=== PATIENT | female | born 1975 | race Hispanic/Latino ===

== ENCOUNTER 2024-08-23 19:08 | Emergency (ER) | payer OTHER ==
[~2024-08-23] VITALS: Ht 162.6 cm; Wt 106.1 kg
[2024-08-23 19:27] VITALS: PULSE 108; RESP 20; TEMP 98.4
[2024-08-23] MEDS ORDERED: PREDNISONE 20 MG TAB ONE (20:05)
[2024-08-23] MEDS: DIPHENHYDRAMINE HCL 25 MG CAP PO STA (20:08)
[2024-08-23] MEDS: PREDNISONE 10 MG TAB PO STA (20:10)
[2024-08-23] MEDS ORDERED: PREDNISONE20 MG PO (20:32)
[2024-08-23 20:40] VITALS: BP 136/60; PULSE 66; RESP 20; O2SAT 98
== END 2024-08-23 20:40 | disposition home or self-care (01) ==
LOC: FSED 19:12
DX: L29.9 Pruritus, unspecified (principal); Z85.528 Personal history of other malignant neoplasm of kidney
CPT/HCPCS: 80053; 80076; 99283; J7512